=== PATIENT | female | born 1985 | race Caucasian/White ===

== ENCOUNTER 2016-07-26 10:56 | Emergency (ER) | payer OTHER ==
[2016-07-26] MEDS ORDERED: NORMAL SALINE 1,000 ML IV ONE ×2 (11:30→13:50)
[2016-07-26 11:47] LABS: Hematocrit 36.6 % (37.0-47.0); Hemoglobin 12.4 gm/dL (12.5-16.0); Mean Cell Volume 88.6 fl (78-100); Mean Corpuscular Hgb Conc 33.9 g/dl (32-36); Mean Platelet Volume 8.4 fl (6.0-9.5); Neutrophil # 6.3 K/mm3 (1.3-6.0); Neutrophil % 77.1 % (42-75.0); Platelet Count 175 K/mm3 (150-450); Red Blood Count 4.13 M/mm3 (4.2-5.4); Red Cell Distribution Width 12.9 % (11.5-14.0); White Blood Count 8.2 K/mm3 (4.0-10.5)
[2016-07-26 11:49] LABS: Urine Appearance Clear; Urine Bacteria None Seen; Urine Bilirubin Negative (NEGATIVE); Urine Blood Negative /ul (NEGATIVE); Urine Color Yellow; Urine Ketone Negative (NEGATIVE); Urine Nitrite Negative (NEGATIVE); Urine Protein Negative (NEGATIVE); Urine RBC None Seen /hpf (0-5); Urine Specific Gravity 1.005 SP.GR. (1.005-1.010); Urine Urobilinogen Normal (NORMAL); Urine WBC None Seen /hpf (0-5)
[2016-07-26 11:59] LABS: BUN/Creatinine Ratio 22.8 (9.0-21.6); Bilirubin, Total 0.1 mg/dL (0.0-1.1); Ca. Corrected For Albumin 9.1 mg/dL (8.4-10.2); Calcium * 8.6 mg/dL (7.9-10.9); Carbon Dioxide 26.6 mmol/L (24-32.6); Potassium 3.6 mmol/L (3.4-4.6); Total Protein 6.8 gm/dL (6.2-8.2)
--- OUTSIDE RECORDS SUMMARY | 2016-07-26 11:59 | XMS REPORT | Continuity of Care Document ---
:1985 Author Organization [facility] ([facility]) Address [place] [address] Phone [phone] Care Team Providers Name Role Phone Chandra Reed Primary Care Provider [phone] Source Comments This disclosure is being made pursuant to the Care Everywhere program, applicable federal and state laws, and may not contain all informaitonavailable regarding this patient.[facility] ([facility]) Active Allergies and Adverse Reactions No Known Allergies Current Medications Prescription Sig. Disp. Refills Start Date End Date Status venlafaxine 150 mg XR Take 150 mg by Active tablet mouth daily ciprofloxacin HCl 500 mg Take 1 tablet 14 tablet 0 06/18/2015 Active tablet (500 mg total) by mouth 2 times daily Active Problems Not on file Social History Tobacco Use Types Packs/Day Years Used Date Never Smoker Last Filed Vital Signs Vital Sign Reading Time Taken Blood Pressure 112/75 06/18/2015 3:32 PM SLOPE TENDER Pulse 69 06/18/2015 3:32 PM SLOPE TENDER Temperature 36.7 C (98.1 F) 06/18/2015 3:32 PM SLOPE TENDER Respiratory Rate 20 05/08/2013 11:12 AM SLOPE TENDER Height - - Weight 64.864 kg (143 lb) 06/18/2015 3:32 PM SLOPE TENDER Body Mass Index - - Oxygen Saturation - - Plan of Care Health Maintenance Due Date Last Done Comments Hepatitis B Vaccine (1 of 3 - Primary Series) 1985 Tdap Vaccine 10/21/1998 Cervical Cancer Screening 10/21/2005 Lipid Disorder Screening 10/21/2005 MMR Vaccine 10/21/2005 Td Vaccine 10/21/2005 Influenza Vaccine: Seasonal (#1) 01/06/2016 Results from Last 3 Months Not on file
--- NOTE | 2016-07-26 12:09 | ERNOTE ---
Medical Problem HPI - Narrative Date of Service: 07/26/16 - General Chief Complaint: General Assessment Time Seen by Provider: 07/26/16 11:47 Source: patient, family Exam Limitations: no limitations - Immun/Allergies/Home Medications Immunizations: IMMUNIZATION HX Immunizations Up to Date Yes History of Influenza Vaccine Yes Hx Pneumococcal Vaccination No Allergies/Adverse Reactions: Allergies No Known Allergies Allergy (Verified 07/26/16 11:18) Home Medications: HOME MEDICATIONS Vit#96/Ferrous Fum/FA [ S] 1 tab PO DAILY 02/27/14 [Last Taken 1 Day Ago] Ferrous Sulfate [Iron] 325 mg PO DAILY 07/26/16 [Last Taken Unknown] Venlafaxine HCl [Effexor Xr] 150 mg PO DAILY 07/26/16 [Last Taken Unknown] lamoTRIgine [Lamictal] 200 mg PO DAILY 07/26/16 [Last Taken Unknown] - History of Present History Narrative: 28 weeks. Frequent provider visits lately. Difficulty getting a deep enough breath, palpitations, light headedness, headaches, nausea, loose stools with painful bowel movements, blurred vision. This is her fifth . She had a miscarriage with her fourth . Headaches back to the time she was a teenager. Uncle raised her. Uncle has a history of headaches. Timing: intermittent Severity: moderate Modifying Factors - (Improves): Present: rest Modifying Factors - (Worsens): Present: movement Review of Systems - Review of Systems Constitutional: Present: weakness, malaise EYE: Present: no symptoms reported ENT: Present: no symptoms reported Respiratory: Present: no symptoms reported Cardiology: Present: palpitations Gastrointestinal/Abdominal: Present: nausea Genitourinary: Present: no symptoms reported Musculoskeletal: Present: no symptoms reported Neurological: Present: no symptoms reported Endocrine: Present: no symptoms reported Hematologic/Lymphatic: Present: no symptoms reported Psych: Present: anxiety All Other Systems: All systems neg except as marked - Patient's Past Medical History Patient History - Medical: No pertinent hx Patient History - Cardiac/Respiratory: No pertinent hx Patient History - Cancer: No Hx of Cancer Patient History - Surgical Procedures: , Other Patient History - Other: None LMP (Calendar): 06/20/15 - Social History Living Situations: home Abuse History: No History of abuse Psych History: Hx of Depression Smoking Status: Never smoker Have you smoked in the past 12 months: No Alcohol Use: none Drug Use: none - Immunizations Immunizations Up to Date: Yes Hx Pneumococcal Vaccination: No History of Influenza Vaccine: Yes Physical Exam - Physical Exam General Appearance: Present: wd/wn, alert, no apparent distress, anxious Eye Exam: Normal inspection: bilateral, PERRL: bilateral, EOMI: bilateral Ears, Nose, Throat: Present: normal ENT inspection, hearing grossly normal Neck: Present: normal inspection, nontender Respiratory: Present: no respiratory distress, normal breath sounds Cardiovascular/Chest: Present: regular rate, rhythm, no murmur Gastrointestinal/Abdominal: Present: normal bowel sounds, nontender, nondistended, soft, other - uterus enlarged Back Exam: Present: normal inspection, normal range of motion Extremity Exam: Present: normal inspection, non-tender Neurological Exam: Present: alert, oriented, normal mood/affect Skin Exam: Present: normal color, warm/dry ED Progress - Results and Orders Patient's Lab Results:: I have reviewed the patient's lab results. - Vital Signs Patient's Vital Signs:: I have reviewed the patient's vital signs. Vital Signs: Vital Signs 07/26/16 11:11 Temperature 36.2 C L Pulse Rate 83 Respiratory 16 Rate Blood Pressure 132/68 O2 Sat by Pulse 100 Oximetry - Progress/Reassessment Chief Complaint: General Assessment Progress Note-Subjective: 07/26/16 15:07 Her headache is gone. She has no abdominal pain. She has no nausea. BUT she "feels the same." The nurse's sense is that she wants to be checked out over in OB, so we will arrange an in-house transfer. Departure - Departure Clinical Impression: Third trimester , Hyperventilation syndrome, Post traumatic stress disorder (PTSD), Unresolved grief, Bipolar disorder Migraine Qualifiers: Migraine type: without aura Status migrainosus presence: without status migrainosus Intractability: not intractable Qualified Code(s): G43.009 - Migraine without aura, not intractable, without status migrainosus Irritable bowel syndrome (IBS) Qualifiers: Irritable bowel syndrome type: with diarrhea Qualified Code(s): K58.0 - Irritable bowel syndrome with diarrhea Disposition: [facility] Condition: Good Referrals: Sher Tapia DO [Primary Care Provider] -
[2016-07-26] MEDS ORDERED: KETOROLAC TROMETHAMINE 30 MG/ML VIAL IV ONE (13:50)
[2016-07-26] MEDS ORDERED: diphenhydrAMINE HCL 50 MG/ML VIAL IV ONE (13:50)
[2016-07-26] MEDS ORDERED: LORazepam 2 MG/ML DISP.SYRIN IV ONE (13:50)
[2016-07-26] MEDS ORDERED: METOCLOPRAMIDE HCL 5 MG/ML VIAL IV ONE (13:50)
[2016-07-26] MEDS ORDERED: diphenhydrAMINE HCL 50 MG/ML VIAL ONE (14:04)
[2016-07-26] MEDS ORDERED: KETOROLAC TROMETHAMINE 30 MG/ML VIAL ONE (14:04)
[2016-07-26] MEDS ORDERED: METOCLOPRAMIDE HCL 5 MG/ML VIAL ONE (14:05)
[2016-07-26] MEDS ORDERED: LORazepam 2 MG/ML DISP.SYRIN ONE (14:05)
[2016-07-26 14:20] VITALS: BP 114/71
== END 2016-07-26 17:00 | disposition home or self-care (01) ==
LOC: ER 10:56
DX: G43.009 Migraine without aura, not intractable, without status migrainosus (principal); F31.9 Bipolar disorder, unspecified; F43.21 Adjustment disorder with depressed mood; F43.10 Post-traumatic stress disorder, unspecified; F45.8 Other somatoform disorders; O26.893 Other specified pregnancy related conditions, third trimester; K58.0 Irritable bowel syndrome with diarrhea

== ENCOUNTER 2016-11-08 12:44 | Inpatient (IN) | payer OTHER ==
--- OUTSIDE RECORDS SUMMARY | 2016-11-08 12:49 | XMS REPORT | Continuity of Care Document ---
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 [employer] Pulse 69 06/18/2015 3:32 PM GENERAL MANAGER [employer] Temperature 36.7 C (98.1 F) 06/18/2015 3:32 PM GENERAL MANAGER [employer] Respiratory Rate 20 05/08/2013 11:12 AM GENERAL MANAGER [employer] Height - - Weight 64.864 kg (143 lb) 06/18/2015 3:32 PM GENERAL MANAGER [employer] Body Mass Index - - Oxygen Saturation - - Plan of Care Health Maintenance Due Date Last Done Comments Hepatitis B Vaccine (1 of 3 - Primary Series) 1985 Tdap Vaccine 10/21/1998 Cervical Cancer Screening 10/21/2005 Lipid Disorder Screening 10/21/2005 MMR Vaccine 10/21/2005 Td Vaccine 10/21/2005 Influenza Vaccine: Seasonal Completed Results from Last 3 Months Not on file
--- OUTSIDE RECORDS SUMMARY | 2016-11-08 14:04 | XMS REPORT | Continuity of Care Document ---
:1985 Author Organization [facility] ([facility]) Address [place] [address] Phone [phone] Care Team Providers Name Role Phone Chandra Reed Primary Care Provider [phone] Source Comments This disclosure is being made pursuant to the Care Everywhere program, applicable federal and state laws, and may not contain all informaitonavailable regarding this patient.[facility] ([facility]) Active Allergies and Adverse Reactions No Known [...] Taken Blood Pressure 112/75 06/18/2015 3:32 PM 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
[2016-11-08] MEDS ORDERED: DEXTROSE 5%-LACTATED RINGERS 1,000 ML IV PRN ×3 (14:09→16:12)
[2016-11-08] MEDS ORDERED: OXYTOCIN 20 UNITS in RINGERS SOLUTION,LACTATED 1,000 ML IV ONE (14:09)
[2016-11-08] MEDS ORDERED: ceFAZolin SODIUM/DEXTROSE,ISO 2 GM/50 ML BAG IV PRN (14:09)
[2016-11-08] MEDS ORDERED: RINGERS SOLUTION,LACTATED 1,000 ML IV ONE (14:35)
--- NOTE | 2016-11-08 16:09 | OR ---
Operative Report - Dictated Report Narrative: Indication: 31-year-old 7 para 3 with prior section presents to labor and delivery in early labor with monitoring showing 2 variable/ late decelerations Pre Operative Diagnosis: 38 6/7 week intrauterine , prior section, labor, variable/late deceleration Post Operative Diagnosis: Same. Procedure: Repeat low transverse section. Surgeon: Chi Tapia DO Inspector Tubes: Or staff Anesthesia: Spinal with duramorph, TAP block Estimated Blood Loss: 200 mL Urine Output: 100 mL clear urine Fluids Replacement: 1600 mL Drains: Lopez to gravity Surgical Complications: None Specimens: Placenta to freezer Findings: Female in cephalic presentation born at 1508 on 11/08/2014 with Apgars 9 and 9, weighing 2977 g. Normal uterus, tubes, ovaries Technique: The patient was taken to the operating room and placed in dorsal supine position with a left lateral tilt. After adequate spinal anesthesia, lopez catheter inserted, SCDs placed, and 2 g of Ancef given preoperatively, the abdominal cavity was entered using sharp and blunt dissection. Two rolled laps were placed in the pericolic gutters on either side of the uterus. A transverse incision was made in the lower uterine segment and extended laterally and upwardly with digital traction. Clear fluid was noted upon amniotomy. The infant was delivered easily. The cord was clamped and cut and infant was handed off to awaiting senior site manager. The placenta was allowed to deliver spontaneously. The uterus was cleared of clot and debris. Uterine incision was closed with 0 Vicryl using a running stitch. A second imbricating layer was placed. Excellent hemostasis was noted. The rolled laps were removed from the abdominal cavitiy. The peritoneum was closed with a running 3- 0 Monocryl. The same suture was used to approximate the rectus and pyramidalis muscles. The fascia was closed with a running 0 Vicryl. The subcutaneous layer was closed with a running 3-0 Monocryl. The same suture was used to approximate the subdermal layer. The skin was closed with a running 4-0 Monocryl and Dermabond. Sponge, lap, needle, and instrument count were correct x 2. Disposition: To post anesthesia care unit in good condition History for MU Definition: * The number of deliveries resulting in a live the patient experienced prior to current hospitalization * The previous delivery of live twins or any live multiple gestation is considered one live event. *If primagravida or nulliparous is documented select zero for the number of previous live births. Live Events: 3
[2016-11-08] MEDS ORDERED: SIMETHICONE 80 MG TAB.CHEW PO PRN (16:12)
[2016-11-08] MEDS ORDERED: ONDANSETRON HCL/PF 2 MG/ML VIAL IV PRN (16:12)
[2016-11-08] MEDS ORDERED: BISACODYL 10 MG SUPP.RECT RC PRN (16:12)
[2016-11-08] MEDS ORDERED: SENNOSIDES 8.6 MG TABLET PO PRN (16:12)
[2016-11-08] MEDS ORDERED: diphenhydrAMINE HCL 50 MG/ML VIAL IV PRN (16:24)
[2016-11-08] MEDS ORDERED: NALOXONE HCL 1 MG/1 ML SYRG IV PRN ×2 (16:24)
[2016-11-08] MEDS: oxyCODONE HCL/ACETAMINOPHEN 1 TAB TABLET PO PRN ×2 (18:16→21:40)
[2016-11-08] MEDS: IBUPROFEN 800 MG TABLET PO PRN (19:22)
[2016-11-08] MEDS: DOCUSATE SODIUM 100 MG CAPSULE PO SCH (21:40)
[2016-11-09] MEDS: oxyCODONE HCL/ACETAMINOPHEN 1 TAB TABLET PO PRN ×8 (00:54→23:56)
[2016-11-09] MEDS: IBUPROFEN 800 MG TABLET PO PRN ×4 (02:43→21:41)
--- NOTE | 2016-11-09 07:40 | PN ---
Subjective - Date and Time Seen Date: 11/09/16 Time: 07:39 Subjective Narrative: The patient denies complications related to Duramorph spinal and bilateral ultrasound-guided tap blocks. Patient states her pain is well controlled. Objective - Review of Systems Generalized/Overall Review: Reports: No Symptoms Reported - Vitals Vitals: Last Vital Signs Temp 36.5 C 11/09/16 07:06 Pulse 72 11/09/16 07:06 Resp 16 11/09/16 07:06 BP 122/76 11/09/16 07:06 Pulse Ox 98 11/09/16 07:06 - Exam Constitutional: Present: Alert, Oriented x3, Cooperative, No distress Extremity: Present: normal range of motion Skin Exam: Present: normal color, warm/dry Cauti Physician Documentation - Urinary Catheter Management Urethral (Camacho) Date of Insertion: 11/08/16 Time of Insertion: 15:00 Date of Removal: 11/09/16 Time of Removal: 04:15 Assessment/Plan Plan Narrative: Continue current pain medications as prescribed.
[2016-11-09] MEDS: DOCUSATE SODIUM 100 MG CAPSULE PO SCH ×2 (08:00→20:59)
[2016-11-09] MEDS: VENLAFAXINE HCL 150 MG CAP.SR.24H PO SCH (08:01)
[2016-11-09] MEDS: lamoTRIgine 100 MG TABLET PO SCH (08:01)
[2016-11-09] MEDS: ARIPiprazole 10 MG TABLET PO SCH (08:01)
[2016-11-09] MEDS: PRENATAL VIT#96/FERROUS FUM/FA 1 TAB TABLET PO SCH (08:02)
[2016-11-09] MEDS ORDERED: ARIPiprazole 5 MG TABLET PO SCH (09:00)
--- NOTE | 2016-11-09 13:35 | PN ---
Subjective - Date and Time Seen Date: 11/09/16 Time: 13:35 Objective - Vitals Vitals: Last Vital Signs Temp 36.5 C 11/09/16 07:06 Pulse 72 11/09/16 07:06 Resp 16 11/09/16 07:06 BP 122/76 11/09/16 07:06 Pulse Ox 98 11/09/16 07:06 Patient denies complaints. Tolerating regular diet. Ambulating without difficulty. Pain well controlled. Lochia wnl. Abdomen - soft, appropriately tender Incision - clean, dry, intact Uterus - firm, at umbilicus -1 No calf tenderness Impression: Post op day #1 s/p repeat section. Plan: Continue routine post-operative/ care Cauti Physician Documentation - Urinary Catheter Management Urethral (Camacho) Date of Insertion: 11/08/16 Time of Insertion: 15:00 Date of Removal: 11/09/16 Time of Removal: 04:15
[2016-11-09] MEDS: FERROUS SULFATE 325 MG TABLET PO SCH (17:32)
[2016-11-10] MEDS: oxyCODONE HCL/ACETAMINOPHEN 1 TAB TABLET PO PRN ×7 (02:52→23:42)
[2016-11-10] MEDS: IBUPROFEN 800 MG TABLET PO PRN ×4 (03:44→22:04)
[2016-11-10] MEDS: VENLAFAXINE HCL 150 MG CAP.SR.24H PO SCH (08:56)
[2016-11-10] MEDS: lamoTRIgine 100 MG TABLET PO SCH (08:56)
[2016-11-10] MEDS: PRENATAL VIT#96/FERROUS FUM/FA 1 TAB TABLET PO SCH (08:56)
[2016-11-10] MEDS: DOCUSATE SODIUM 100 MG CAPSULE PO SCH ×2 (08:56→20:32)
[2016-11-10] MEDS: ARIPiprazole 10 MG TABLET PO SCH (08:56)
[2016-11-10] MEDS: FERROUS SULFATE 325 MG TABLET PO SCH (08:59)
--- NOTE | 2016-11-10 12:49 | PN ---
Subjective - Date and Time Seen Date: 11/10/16 Time: 12:48 Objective - Vitals Vitals: Last Vital Signs Temp 36.6 C 11/10/16 12:02 Pulse 82 11/10/16 12:02 Resp 16 11/10/16 12:02 BP 122/77 11/10/16 12:02 Pulse Ox 96 11/10/16 12:02 Patient denies complaints. Ambulating well. Tolerating regular diet. Pain well controlled. Lochia wnl. Abdomen - soft, appropriately tender Incision - clean, dry, intact Uterus - firm, at umbilicus -2 No calf tenderness Impression: Post op day #2 s/p repeat section. Anxiety/depression- stable Plan: Continue routine post-operative/ care Cauti Physician Documentation - Urinary Catheter Management Urethral (Camacho) Date of Insertion: 11/08/16 Time of Insertion: 15:00 Date of Removal: 11/09/16 Time of Removal: 04:15
[2016-11-11] MEDS: oxyCODONE HCL/ACETAMINOPHEN 1 TAB TABLET PO PRN ×3 (03:41→10:52)
[2016-11-11] MEDS: IBUPROFEN 800 MG TABLET PO PRN ×2 (04:15→10:52)
--- NOTE | 2016-11-11 06:27 | PN ---
Subjective - Date and Time Seen Date: 11/11/16 Time: 06:26 Objective - Vitals Vitals: Last Vital Signs Temp 36.4 C L 11/10/16 23:51 Pulse 67 11/10/16 23:51 Resp 16 11/10/16 23:51 BP 133/65 11/10/16 23:51 Pulse Ox 98 11/10/16 23:51 Patient denies complaints. Ambulating without difficulty. Tolerating regular diet. Pain well controlled. Lochia wnl. Abdomen - soft, appropriately tender Incision - clean, dry, intact Uterus - firm, at umbilicus -3 No calf tenderness Impression: Post op day #3 s/p repeat section. Anxiety/depression- stable Plan: Routine discharge instructions Cauti Physician Documentation - Urinary Catheter Management Urethral (Camacho) Date of Insertion: 11/08/16 Time of Insertion: 15:00 Date of Removal: 11/09/16 Time of Removal: 04:15
[2016-11-11 07:49] VITALS: BP 126/80
[2016-11-11] MEDS: VENLAFAXINE HCL 150 MG CAP.SR.24H PO SCH (08:55)
[2016-11-11] MEDS: ARIPiprazole 10 MG TABLET PO SCH (08:55)
[2016-11-11] MEDS: DOCUSATE SODIUM 100 MG CAPSULE PO SCH (08:55)
[2016-11-11] MEDS: lamoTRIgine 100 MG TABLET PO SCH (08:55)
[2016-11-11] MEDS: PRENATAL VIT#96/FERROUS FUM/FA 1 TAB TABLET PO SCH (08:55)
[2016-11-11] MEDS: FERROUS SULFATE 325 MG TABLET PO SCH (08:55)
== END 2016-11-11 12:50 | disposition home or self-care (01) | DRG 766 ==
LOC: OBCLINIC 12:44 → OB 14:00 → MS 11-09 15:47
PROVIDERS: ADMIT Obstetrics & Gynecology; ATTEND Obstetrics & Gynecology
PROC: 4A1HXCZ Monitoring of Products of Conception, Cardiac Rate, External Approach (ICD-10-PCS; 2016-11-08)
PROC: 10D00Z1 Extraction of Products of Conception, Low, Open Approach (ICD-10-PCS; principal; 2016-11-08 14:16)
DX: O76 Abnormality in fetal heart rate and rhythm complicating labor and delivery (principal); O99.824 Streptococcus B carrier state complicating childbirth; O34.211 Maternal care for low transverse scar from previous cesarean delivery; O75.82 Onset (spontaneous) of labor after 37 completed weeks of gestation but before 39 completed weeks gestation, with delivery by (planned) cesarean section; F31.9 Bipolar disorder, unspecified; Z3A.39 39 weeks gestation of pregnancy; Z37.0 Single live birth

== ENCOUNTER 2017-02-20 20:36 | Emergency (ER) | payer OTHER ==
[2017-02-20 20:54] LABS: Hematocrit 42.8 % (37.0-47.0); Hemoglobin 14.7 gm/dL (12.5-16.0); Mean Cell Volume 85.4 fl (78-100); Mean Corpuscular Hemoglobin 29.3 pg (27-31); Mean Corpuscular Hgb Conc 34.3 g/dl (32-36); Mean Platelet Volume 9.3 fl (6.0-9.5); Neutrophil # 5.8 K/mm3 (1.3-6.0); Neutrophil % 63.8 % (42-75.0); Platelet Count 311 K/mm3 (150-450); Red Blood Count 5.01 M/mm3 (4.2-5.4); Red Cell Distribution Width 13.2 % (11.5-14.0); White Blood Count 9.1 K/mm3 (4.0-10.5)
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
[2017-02-20 21:12] LABS: Albumin * 3.7 gm/dl (3.4-5.0); BUN/Creatinine Ratio 11.7 (9.0-21.6); Bilirubin, Total 0.3 mg/dL (0.0-1.1); Ca. Corrected For Albumin 8.7 mg/dL (8.4-10.2); Calcium * 8.8 mg/dL (7.9-10.9); Carbon Dioxide 22.4 mmol/L (24-32.6); Potassium 3.4 mmol/L (3.4-4.6); Total Protein 7.5 gm/dL (6.2-8.2)
[2017-02-20] MEDS ORDERED: MORPHINE SULFATE 4 MG/ML SYRG ONE (21:23)
[2017-02-20] MEDS ORDERED: MORPHINE SULFATE 4 MG/ML SYRG IV ONE (21:23)
[2017-02-20 21:30] LABS: Cocaine Ur Negative (NEGATIVE); Urine Barbiturate Negative (NEGATIVE); Urine Benzodiazepines Negative (NEGATIVE); Urine Opiates Negative (NEGATIVE); Urine PCP Negative (NEGATIVE); Urine THC Negative (NEGATIVE)
[2017-02-20 21:35] LABS: Urine Appearance Clear; Urine Bilirubin Negative (NEGATIVE); Urine Blood Negative /ul (NEGATIVE); Urine Color Yellow; Urine Ketone Negative (NEGATIVE); Urine Nitrite Negative (NEGATIVE); Urine Protein Negative (NEGATIVE); Urine Specific Gravity 1.005 SP.GR. (1.005-1.010); Urine Urobilinogen Normal (NORMAL)
[2017-02-20 21:36] LABS: Urine Bacteria None Seen; Urine RBC None Seen /hpf (0-5); Urine WBC None Seen /hpf (0-5)
--- NOTE | 2017-02-20 21:36 | HP ---
Chief Complaint - Chief Complaint Date of Service: 02/20/17 Time of Service: 21:25 Chief Complaint: Fell off horse History of Present Illness: Pt fell off horse at the [facility] in [facility]. EMS squad was on scene covering and reported no LOC. She was reported to have hyperventilated two times and fainted. She presented with multiple complaints of pain. She is three months post- from a . - Patient's Past Medical History Patient History - Medical: Anxiety, Depression Patient History - Cardiac/Respiratory: No pertinent hx Patient History - Cancer: No Hx of Cancer Patient History - Surgical Procedures: , Other Patient History - Other: None LMP (females 10-50): other LMP (Calendar): 06/20/15 - Social History Living Situations: home Abuse History: No History of abuse Psych History: Hx of Depression Smoking Status: Never smoker Alcohol Use: none Drug Use: none - Immunizations Immunizations Up to Date: Yes Hx Pneumococcal Vaccination: No History of Influenza Vaccine: Yes Review Of Systems (GEN) - Review of Systems EENTM: Present: Other - pain back of head Musculoskeletal: Present: Back Pain - lower Misc: All systems neg except as marked Immunizations: IMMUNIZATION HX Immunizations Up to Date Yes History of Influenza Vaccine Yes Hx Pneumococcal Vaccination No Allergies/Adverse Reactions: Allergies Allergy/AdvReac Type Severity Reaction Status Date / Time No Known Allergies Allergy Verified 02/20/17 20:45 Home Medications: HOME MEDICATIONS Vits96/Iron Fum/Folic [ S] 1 tab PO DAILY 02/27/14 [Last Taken 11/08/16 07:00] Ferrous Sulfate [Iron] 325 mg PO DAILY 07/26/16 [Last Taken 11/08/16 07:00] Venlafaxine HCl [Effexor Xr] 150 mg PO DAILY 07/26/16 [Last Taken 11/08/16 07:00 ] lamoTRIgine [Lamictal] 25 mg PO DAILY 07/26/16 [Last Taken 11/08/16 07:00] ARIPiprazole [Abilify] 5 mg PO DAILY 09/25/16 [Last Taken 11/08/16 07:00] Ibuprofen [Motrin] 200 - 800 mg PO Q6H PRN #100 tab 11/10/16 [Last Taken Unknown ] oxyCODONE HCL/ACETAMINOPHEN [Percocet 5 MG/325 MG] 1 tab PO Q4H PRN #20 tablet 11/10/16 [Last Taken Unknown] Exam - Exam Vital Signs: Vital Signs - Last Taken Temp 36.2 C L 02/20/17 20:37 Pulse 97 02/20/17 21:17 Resp 18 02/20/17 21:17 BP 145/83 02/20/17 21:17 Pulse Ox 97 02/20/17 21:17 Constitutional: Present: Alert, Oriented x3, Cooperative, Well developed, Well nourished, Mild distress ENT Exam: Present: normal ENT inspection, hearing grossly normal, TMs normal, moist mucous membranes Eye Exam: bilateral eye: normal inspection Neck: Present: non-tender, full range of motion, supple, normal inspection, trachea midline. Absent: lymphadenopathy (R), lymphadenopathy (L), thyromegaly Back Exam: Present: normal inspection, other - tender lumbar midline Breasts: Present: Other - normal inspection. not breast feeding. Respiratory: Present: chest non-tender, lungs clear, normal breath sounds, no respiratory distress, no accessory muscle use Cardiovascular/Chest: Present: normal peripheral pulses, regular rate, rhythm, no murmur Abdomen: Present: Normal bowel sounds, soft, nontender, nondistended, no rebound tenderness, no hepatospenomegaly, no masses /Rectal: Present: External genitalia normal Extremity: Present: normal range of motion, non-tender, normal inspection, no pedal edema, normal capillary refill, other - mildly abraded right lateral malleolus Skin Exam: Present: normal color, warm/dry Neurologic: Present: no motor/sensory deficits Eye contact: Present: cooperative, normal speech Thoughts: Present: other - anxious Diagnostic Studies: Abnormal Lab Results 02/20/17 02/20/17 Range/Units 20:40 20:45 Immature Gran % (Auto) 0.90 H (0.001-0.429) % Immature Gran # (Auto) 0.08 H (0.000-0.0310) K/mm3 Sodium 144 H (132-142) mmol/L Plasma Sodium 144 H (130-142) mmol/L Chloride 108 H (97-106) mmol/L Carbon Dioxide 22.4 L (24-32.6) mmol/L Anion Gap 17.0 H (6.8-13.8) mmol/L Laboratory Results WBC 9.1 K/mm3 (4.0-10.5) 02/20/17 20:45 RBC 5.01 M/mm3 (4.2-5.4) 02/20/17 20:45 Hgb 14.7 gm/dL (12.5-16.0) 02/20/17 20:45 Hct 42.8 % (37.0-47.0) 02/20/17 20:45 MCV 85.4 fl (78-100) 02/20/17 20:45 MCH 29.3 pg (27-31) 02/20/17 20:45 MCHC 34.3 g/dl (32-36) 02/20/17 20:45 RDW 13.2 % (11.5-14.0) 02/20/17 20:45 Plt Count 311 K/mm3 (150-450) 02/20/17 20:45 MPV 9.3 fl (6.0-9.5) 02/20/17 20:45 Immature Gran % (Auto) 0.90 % (0.001-0.429) H 02/20/17 20:45 Immature Gran # (Auto) 0.08 K/mm3 (0.000-0.0310) H 02/20/17 20:45 Neutrophils % 63.8 % (42-75.0) 02/20/17 20:45 Lymphocytes % 28.3 % (20-51) 02/20/17 20:45 Monocytes % 5.5 % (0.0-9) 02/20/17 20:45 Eosinophils % 0.8 % (0.0-3.0) 02/20/17 20:45 Basophils % 0.7 % (0.0-1.0) 02/20/17 20:45 Nucleated RBC % 0.0 k/mm3 (0-1) 02/20/17 20:45 Neutrophils # 5.8 K/mm3 (1.3-6.0) 02/20/17 20:45 Lymphocytes # 2.6 k/mm3 (1.5-3.5) 02/20/17 20:45 Monocytes # 0.5 k/mm3 (0.0-1.0) 02/20/17 20:45 Eosinophils # 0.1 k/mm3 (0.0-0.7) 02/20/17 20:45 Absolute Basophils 0.1 k/mm3 (0.0-0.1) 02/20/17 20:45 Sodium 144 mmol/L (132-142) H 02/20/17 20:40 Plasma Sodium 144 mmol/L (130-142) H 02/20/17 20:40 Potassium 3.4 mmol/L (3.4-4.6) 02/20/17 20:40 Chloride 108 mmol/L (97-106) H 02/20/17 20:40 Carbon Dioxide 22.4 mmol/L (24-32.6) L 02/20/17 20:40 Anion Gap 17.0 mmol/L (6.8-13.8) H 02/20/17 20:40 BUN 11 mg/dL (3-23) 02/20/17 20:40 Creatinine 0.94 mg/dL (0.4-1.4) 02/20/17 20:40 Est GFR (Non-Af Amer) 75 mL/min (60-130) 02/20/17 20:40 BUN/Creatinine Ratio 11.7 (9.0-21.6) 02/20/17 20:40 Random Glucose 109 mg/dL (70-110) 02/20/17 20:40 Calcium 8.8 mg/dL (7.9-10.9) 02/20/17 20:40 Calcium Adj for Albumin 8.7 mg/dL (8.4-10.2) 02/20/17 20:40 Total Bilirubin 0.3 mg/dL (0.0-1.1) 02/20/17 20:40 AST 21 U/L (0-48) 02/20/17 20:40 ALT 29 U/L (19-67) 02/20/17 20:40 Alkaline Phosphatase 70 U/L (50-170) 02/20/17 20:40 Total Protein 7.5 gm/dL (6.2-8.2) 02/20/17 20:40 Albumin 3.7 gm/dl (3.4-5.0) 02/20/17 20:40 Amylase 40 U/L (25-115) 02/20/17 20:40 Serum HCG, Qual Negative (NEGATIVE) 02/20/17 20:40 Blood Type AB Positive 02/20/17 20:40 Assessment/Plan - Assessment/Plan (1) Strain of muscle, fascia and tendon of lower back, initial encounter Assessment: No significant serious injury. Lower back strain. Tylenol and advil for that. HEMA is quite low and should be safe for discharge. Case d/w ERP. Problem: Acute (2) Contusion of scalp Problem: Acute (3) Abrasion of ankle, right Problem: Acute
[2017-02-20 22:28] VITALS: BP 110/70
== END 2017-02-20 22:35 | disposition home or self-care (01) ==
LOC: ER 20:36
DX: S06.0X0A Concussion without loss of consciousness, initial encounter (principal); S39.012A Strain of muscle, fascia and tendon of lower back, initial encounter; S90.511A Abrasion, right ankle, initial encounter; F43.0 Acute stress reaction; V80.010A Animal-rider injured by fall from or being thrown from horse in noncollision accident, initial encounter; Y93.52 Activity, horseback riding; Y92.39 Other specified sports and athletic area as the place of occurrence of the external cause
CPT/HCPCS: 36415; 70450; 71260; 72125; 74177; 80053; 80307; 81001; 82150; 84703; 85025; 86850; 86900; 96374; 99284; G0481

== ENCOUNTER 2017-05-21 12:07 | Day surgery (SDC) | payer OTHER ==
[~2017-05-21 12:07] MED LIST: RINGER'S SOLUTION,LACTATED 1,000 ML IV PRN; ceFAZolin SODIUM 2 GM in DEXTROSE 5 % IN WATER 50 ML IV PRN
[2017-05-21] MEDS ORDERED: RINGER'S SOLUTION,LACTATED 1,000 ML IV ONE (12:48)
[2017-05-21] MEDS ORDERED: LIDOCAINE HCL 50 ML VIAL IJ ONE ×3 (13:05→13:09)
[2017-05-21] MEDS ORDERED: BUPIVACAINE HCL 50 ML VIAL IJ ONE ×3 (13:05→13:09)
[2017-05-21] MEDS ORDERED: DEXAMETHASONE SOD PHOSPHATE 4 MG/ML VIAL IJ ONE (13:25)
[2017-05-21] MEDS ORDERED: HYDROcodone/ACETAMINOPHEN 1 EACH TABLET PO PRN (14:20)
[2017-05-21 14:45] VITALS: BP 115/77
== END 2017-05-21 12:08 | disposition home or self-care (01) ==
LOC: AMB 12:07
PROVIDERS: ATTEND Student in an Organized Health Care Education/Training Program
PROC: 0QBM0ZZ Excision of Left Tarsal, Open Approach (ICD-10-PCS; 2017-05-21)
PROC: 0J8R0ZZ Division of Left Foot Subcutaneous Tissue and Fascia, Open Approach (ICD-10-PCS; principal; 2017-05-21 13:00)
DX: M72.2 Plantar fascial fibromatosis (principal); M77.32 Calcaneal spur, left foot; F31.9 Bipolar disorder, unspecified; Z68.30 Body mass index [BMI] 30.0-30.9, adult